=== PATIENT | female | born 1945 | race Caucasian/White ===

== ENCOUNTER → 2016-11-23 | Outpatient (CLI) | payer MEDICARE, BC ==
[~2016-11-23] MED LIST: ASA CHILDREN'S81 MG PO; ASA325 MG PO; NORVASC DPS10 MG PO; OXY IR DPS5 MG PO; OYSTER SHELL C500 MG PO; TOPROL XL50 MG PO; ULTRAM DPS50 MG PO; VITAMIN D2000 UNI1 PO; ZOCOR DPS20 MG PO
== END | disposition home or self-care (01) ==
LOC: RAD.S 12:30
DX: Z12.31 Encounter for screening mammogram for malignant neoplasm of breast (principal); R92.1 Mammographic calcification found on diagnostic imaging of breast; N63 Unspecified lump in breast